=== PATIENT | male | born 1990 | race Caucasian/White ===

== ENCOUNTER 2023-11-29 07:30 | Emergency (ER) | payer SELFPAY ==
[2023-11-29 07:35] VITALS: BP 156/98; PULSE 97; RESP 14; TEMP 36.2; O2SAT 99; BMI 19.4
--- NOTE | 2023-11-29 08:04 | ED.SKABFB ---
HPI - Skin/Abscess/Foreign Bdy General Chief complaint: Skin/Abscess/Foreign Body Stated complaint: abcess in the back of neck per pt Time Seen by Provider: 11/29/23 07:43 Source: patient Mode of arrival: Ambulatory Limitations: no limitations History of Present Illness HPI narrative: Patient is a 33-year-old male without significant medical problems presenting today with abscess in the back of his neck. He reports it started as a pimple however over the last 5 days it has grown. No fevers. He is having quite a bit of pain. Has not really had abscesses before. Related Data Previous Rx's Medication Instructions Recorded doxycycline hyclate 100 mg capsule 100 mg PO BID #14 caps 11/29/23 Allergies Allergy/AdvReac Type Severity Reaction Status Date / Time No Known Drug Allergies Allergy Verified 11/29/23 07:43 Patient History Social History Smoking Status: Current every day smoker Smoking Status: Current every day smoker tobacco type: cigarettes alcohol intake frequency: 0-2 drinks per day Substance Use Type: marijuana Exam Initial Vital Signs Initial Vital Signs: Vital Signs Temperature 97.1 F L 11/29/23 07:35 Pulse Rate 97 H 11/29/23 07:35 Respiratory Rate 14 11/29/23 07:35 Blood Pressure 156/98 H 11/29/23 07:35 Pulse Oximetry 99 11/29/23 07:35 Oxygen Delivery Method Room Air 11/29/23 07:35 GENERAL: Well-appearing, well-nourished and in no acute distress. CARDIOVASCULAR: peripheral pulses in tact, cap refill <2 sec RESPIRATORY: No respiratory distress, speaks in full sentences without difficulty EXTREMITIES: Normal range of motion, no clubbing or edema. Neurovascularly intact NEUROLOGICAL: Cranial nerves II through XII grossly intact. Normal gait and speech. SKIN: Posterior neck 5 cm x 5 cm very fluctuant abscess without induration Procedures Abscess I/D I&D #1: Site: neck Local Anesthetic: lidocaine 2% and with epi Amount of anesthesia used (mL): 5 Technique: incised with #11 blade Amount of fluid expressed (mL): 10 Irrigation: Yes Packing used?: iodoform Course Orders Ordered: ED Orders 11/29/23 08:03 Wound Culture and Gram Stain Stat Vital Signs Vital signs: Vital Signs - 8 hr 11/29/23 07:35 Temperature 97.1 F L Pulse Rate 97 H Respiratory Rate 14 Blood Pressure 156/98 H Pulse Oximetry 99 Oxygen Delivery Method Room Air MDM - Skin/Abscess/Foreign Bdy MDM Narrative Medical decision making narrative: Patient is a 33-year-old healthy male who presents today with abscess on the back of neck. No fevers very fluctuant abscess. It was easily drained with copious amounts of thick discharge. Sent for culture. Patient does not appear septic. Tolerated procedure very well. Wound was irrigated and packed. Antibiotics sent to pharmacy of choice. Discharge Plan Departure Patient Disposition: Home Clinical Impression: Abscess of skin or subcutaneous tissue Instructions: DI for Incision and Drainage of a Skin Abscess, DI for Skin Abscess Activity Restrictions/Additional Instructions: *You have been diagnosed with skin abscess *What to do: You should start to feel much better now that this has been drained. Please keep clean and dry with soap and water you may bathe regularly. Change dressing daily. You had packing in place I anticipate that it will fall out it should heal regardless. *Continue to take medications as directed Doxycycline 100 mg twice a day for 7 days Tylenol Motrin as needed for pain *Follow up with your primary care provider in 2-3 days or call [phone] *Return to ER if you should have recurrent swelling fevers redness or any new, worsening or concerning symptoms Prescriptions: New doxycycline hyclate 100 mg capsule 100 mg PO BID Qty: 14 0RF Stand Alone Forms: Patient Portal/API
[2023-11-29 08:10] VITALS: PULSE 78; RESP 18; O2SAT 98
== END 2023-11-29 08:10 | disposition home or self-care (01) ==
PROVIDERS: Emergency Provider Emergency Medicine
DX: L02.11 Cutaneous abscess of neck (principal)
CPT/HCPCS: 10060; 87070; 87205; 99283

== ENCOUNTER 2024-04-11 07:23 | Emergency (ER) | payer SELFPAY ==
[2024-04-11 07:28] VITALS: BP 147/82; PULSE 81; O2SAT 99
[2024-04-11 07:30] VITALS: PULSE 85; O2SAT 99
[2024-04-11 07:34] VITALS: BP 147/82; PULSE 68; RESP 20; TEMP 37; O2SAT 99; BMI 20.5
[2024-04-11 08:00] VITALS: PULSE 78; O2SAT 97
--- NOTE | 2024-04-11 08:05 | DI.CT.S_ITS ---
PROCEDURE: CT CERVICAL SPINE WO CON INDICATIONS: polytrauma/neck pain TECHNIQUE: Noncontrast 3 mm thick sections acquired from the skull base to the T4 level. Sagittal and coronal reformats were then constructed. For radiation dose reduction, the following was used: automated exposure control, adjustment of mA and/or kV according to patient size. COMPARISON: [facility], CT, CT ANGIO CHEST PE PROTOCOL, 04/11/2024, 8:30. FINDINGS: Image quality: Excellent. Bones: No fractures or dislocations. There is a posterior left 2nd rib fracture present. There is also a lateral 6th left rib fracture present on the CT angiogram of the chest. Soft tissues: Prevertebral soft tissues are normal in thickness. No paravertebral hematomas. No apical pneumothoraces. IMPRESSION: 1. No acute cervical fracture or dislocation. 2. Fractures of the left posterior 2nd rib and lateral 6th rib. Dictated by: Misha Olguin M.D. on 04/11/2024 at 9:56 Approved by: Misha Olguin M.D. on 04/11/2024 at 9:59
--- NOTE | 2024-04-11 08:05 | DI.RAD.S_ITS ---
PROCEDURE: XR SHOULDER LT MIN 2V INDICATIONS: pain/injury TECHNIQUE: 3 views of the shoulder were acquired. COMPARISON: [facility], CT, CT ANGIO CHEST PE PROTOCOL, 04/11/2024, 8:30. FINDINGS: Bones: No fractures or dislocations. No suspicious bony lesions. Visualized ribs appear intact. Lateral left 6th rib fracture. Soft tissues: No suspicious soft tissue calcifications. IMPRESSION: Known rib fracture. This is difficult to identify on these films. No acute bony abnormality involving the shoulder. Dictated by: Misha Olguin M.D. on 04/11/2024 at 11:11 Approved by: Misha Olguin M.D. on 04/11/2024 at 11:12
--- NOTE | 2024-04-11 08:06 | DI.CT.S_ITS ---
PROCEDURE: CT ANGIO CHEST PE PROTOCOL INDICATIONS: pain/injury TECHNIQUE: After the administration of intravenous contrast, 2 mm thick sections acquired from the pulmonary apices to the posterior costophrenic angles. 3-dimensional maximum intensity projection (MIP) coronal and sagittal reformats were then acquired through the thorax. For radiation dose reduction, the following was used: automated exposure control, adjustment of mA and/or kV according to patient size. COMPARISON: None. FINDINGS: Image quality: Diagnostic. Pulmonary arteries: Pulmonary arteries are normal in size, and demonstrate no intraluminal filling defects to suggest central pulmonary embolism. Lower Neck: No enlarged lymph nodes. Thyroid: No thyroid nodules which require sonographic follow up, per consensus guidelines. Axillae: No enlarged lymph nodes. Chest Wall: Unremarkable. Bones: Unremarkable. Lungs and Pleura: No pneumothorax or pleural effusions. No consolidation or suspicious nodules. Heart: Heart size is normal. No pericardial effusion. Thoracic Vessels: No aortic aneurysm. 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 Mediastinum and Bijal: No enlarged lymph nodes. Esophagus: No wall thickening. No hiatal hernia. Upper Abdomen: Visualized upper abdomen solid organs and bowel loops appear normal. IMPRESSION: No pulmonary embolus. No acute cardiopulmonary process. Note made of variant arch anatomy, with an aberrant right subclavian. Dictated by: Misha Olguin M.D. on 04/11/2024 at 9:46 Approved by: Misha Olguin M.D. on 04/11/2024 at 9:49
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
[2024-04-11] MEDS: SODIUM CHLORIDE 0.9% 1,000 ML 1000 ML IV (08:24)
[2024-04-11] MEDS: MORPHINE 4 MG/ML INJ IV (08:25)
[2024-04-11 08:29] LABS: Add Manual Diff / Slide Review NO; Basophils Absolute Auto 100 /uL (0-100); Basophils Percent Auto 1.3 % (0-2); Eosinophils Absolute Auto 100 /uL (0-450); Eosinophils Percent Auto 2.2 % (2-4); Hematocrit 42.2 % (41-53); Hemoglobin 14.4 g/dL (13.5-17.5); Lymphocytes Absolute Auto 1400 /uL (1100-4500); Lymphocytes Percent Auto 21.4 % (25-40); Mean Corpuscular HGB Conc 34.1 % (30-36); Mean Corpuscular Hemoglobin 29.3 PG (26-34); Mean Corpuscular Volume 85.9 fL (80-100); Monocytes Absolute Auto 600 /uL (0-900); Monocytes Percent Auto 9.7 % (3-14); Neutrophils Absolute Auto 4300 /uL (1500-7000); Neutrophils Percent Auto 65.4 % (50-75); Platelet Count 339 X10^3/uL (150-400); Red Blood Cell Count 4.91 X10^6/uL (4.5-5.9); Red Cell Distribution Width 13.6 % (11.6-14.8); White Blood Cell Count 6.6 X10^3/uL (4.5-11.0)
[2024-04-11 08:40] LABS: Alanine Aminotransferase 17 IU/L (<50); Albumin 4.7 g/dL (3.5-5.0); Albumin Globulin Ratio 1.7 (1.0-2.8); Alkaline Phosphatase 91 U/L (38-126); Aspartate Aminotransferase 24 IU/L (17-59); BUN Creatinine Ratio 22.3 (6-22); Bilirubin Total 0.6 mg/dL (0.2-1.3); Blood Urea Nitrogen 23 mg/dL (9-20); Calcium 9.4 mg/dL (8.4-10.2); Carbon Dioxide 25 mmol/L (22-32); Chloride 107 mmol/L (98-107); Estimated Glomerular Filt Rate > 60 mL/min (>60); Globulin 2.8 g/dL (1.7-4.1); Glucose 94 mg/dL (70-100); HEMOLYSIS < 15 (0-50); Potassium 4.1 mmol/L (3.4-5.1); Sodium 140 mmol/L (137-145); Total Protein 7.5 g/dL (6.3-8.2)
[2024-04-11] MEDS: KETOROLAC 30 MG/ML VIAL 15 MG IV (09:45)
[2024-04-11] MEDS: HYDROMORPHONE 1 MG INJ IV (09:45)
--- NOTE | 2024-04-11 09:51 | PC.NURSE ---
Pt c/o pain in shoulder. Dr Graff aware and to order more pain medications. Pt denies SOB or cp. A&Ox4.
[2024-04-11 10:05] VITALS: BP 130/68; PULSE 62; RESP 20; TEMP 36.4; O2SAT 100
[2024-04-11 11:22] VITALS: BP 136/90; PULSE 67; RESP 18; TEMP 36.5; O2SAT 99
== END 2024-04-11 11:24 | disposition home or self-care (01) ==
PROVIDERS: Emergency Provider Emergency Medicine
DX: S22.42XA Multiple fractures of ribs, left side, initial encounter for closed fracture (principal); M25.512 Pain in left shoulder; S09.90XA Unspecified injury of head, initial encounter; M54.2 Cervicalgia; V29.91XA Electric (assisted) bicycle rider (driver) (passenger) injured in unspecified traffic accident, initial encounter
CPT/HCPCS: 70450; 71275; 72125; 73030; 80053; 85025; 96361; 96374; 96375; 99283; 99284; J1170; J1885; J2270; Q9967